=== PATIENT | female | born 1990 | race Caucasian/White ===

== ENCOUNTER 2017-02-03 11:53 | Emergency (ER) | payer SELFPAY ==
[2017-02-03 12:01] VITALS: TEMP 98.2
[2017-02-03] MEDS ORDERED: PROPARACAINE 0.5% 15 ML OPHT DROP ONE (12:14)
[2017-02-03] MEDS ORDERED: FLUORESCEIN SODIUM 1 MG STRIP OP ONE ×2 (12:14→12:17)
[2017-02-03] MEDS ORDERED: PROPARACAINE 0.5% 15 ML OPHT DROP LEFTEYE ONE (12:17)
[2017-02-03] MEDS ORDERED: OFLOXACIN 0.3% SOLN PREPACK OPHT.BTL TAKEHOME ONE (13:18)
--- NOTE | 2017-02-03 13:23 | EDPHY ---
H & P Time Seen by Provider: 02/03/17 12:09 HPI/ROS: CHIEF COMPLAINT: Left eye irritation HISTORY OF PRESENT ILLNESS: 26-year-old female presents emergency department complaining of left eye pain that started last night. Patient reports her eye feels irritated and itchy. She removed her contact lens, this morning she had increased eye irritation and pain with blinking. She denies blurred vision, no flashing lights, shadows, floaters. No fevers. Smoking Status: Never smoked Physical Exam: Visual Acuity: Noted from Nurse's notes. Left eye Pupils: PERRLA, EOMI, no nystagmus, no trauma, no injection. Lids: No edema or swelling Skin: No proptosis, no periorbital erythema or swelling, no vesicles Conjunctivae: injected, not icteric, no discharge Cornea: Exam with slit lamp and fluoroscein shows corneal abrasion center of cornea, negative Iris sign Anterior chamber: Normal, no hyphema or hypopyon Constitutional: Initial Vital Signs Temperature (C) 36.8 C 02/03/17 11:58 Heart Rate 72 02/03/17 11:58 Respiratory Rate 17 02/03/17 11:58 Blood Pressure 114/64 02/03/17 11:58 O2 Sat (%) 96 02/03/17 11:58 O2 Delivery Mode Room Air Allergies/Adverse Reactions: No Known Allergies Allergy (Verified 02/03/17 11:57) Home Medications: Medication Instructions Recorded No Home Meds 06/30/14 MDM/Departure - MDM Medications Given: Discontinued Medications Fluorescein Sodium ([id number]) 1 mg OP EDNOW ONE Stop: 02/03/17 12:18 Last Admin: 02/03/17 12:17 Dose: 1 mg Proparacaine HCl (Alcaine 0.5%) 1 drops LEFTEYE ONCE ONE Stop: 02/03/17 12:18 Last Admin: 02/03/17 12:17 Dose: 1 drop - Depart Disposition: Home, Routine, Self-Care Clinical Impression: Corneal abrasion, left Qualifiers: Encounter type: initial encounter Qualified Code(s): S05.02XA - Injury of conjunctiva and corneal abrasion without foreign body, left eye, initial encounter Condition: Good Instructions: Corneal Abrasion (ED) Additional Instructions: Do not wear contact lenses until your symptoms have completely resolved in your done with antibiotic drops. Use 1-2 drops of the Ocuflox in left eye 4 times a day for 5 days. Follow up with the gas dispatcher for symptoms that are not resolving in the next 2-3 days. Return to the emergency department for any new symptoms, worsening symptoms or concerns. Referrals: Mynor Wilder MD [Medical Doctor] - As per Instructions ([employer] on- call)
[2017-02-03 13:37] VITALS: BP 112/68; PULSE 68; RESP 14; O2SAT 97
== END 2017-02-03 13:36 | disposition home or self-care (01) ==
DX: H18.822 Corneal disorder due to contact lens, left eye (principal)